=== PATIENT | female | born 1950 ===

== ENCOUNTER 2018-08-04 06:31 | Day surgery (SDC) | payer MEDICARE ==
[2018-07-28 10:01] VITALS: BMI 26.4
[2018-08-04 06:58] VITALS: TEMP 98
[2018-08-04] MEDS ORDERED: Sodium Chloride 0.9% 1,000 ML IV SCH (08:00)
[2018-08-04] MEDS ORDERED: Propofol 10 mg/ml Inj (20 ML) ONE (08:07)
[2018-08-04 08:54] VITALS: BP 129/77; PULSE 65; RESP 16; O2SAT 97
== END 2018-08-04 09:45 | disposition home or self-care (01) ==
LOC: ENDO 06:31
PROVIDERS: ATTEND Specialist
DX: K21.9 Gastro-esophageal reflux disease without esophagitis (principal); K31.7 Polyp of stomach and duodenum; K29.70 Gastritis, unspecified, without bleeding; K44.9 Diaphragmatic hernia without obstruction or gangrene
CPT/HCPCS: 43239; 88305; 88342; J2001; J2704; J7030; J7040